=== PATIENT | female | born 1960 | race Caucasian/White ===

== ENCOUNTER 2023-04-08 10:35 | Emergency (ER) | payer SELFPAY ==
[2023-04-08 10:51] VITALS: BP 135/80; PULSE 98; RESP 16; TEMP 36.6; O2SAT 95; BMI 28.3
--- NOTE | 2023-04-08 11:36 | ED.GENADULT ---
HPI - General Adult General Date Seen: 04/08/23 Chief complaint: Jaw Injury/Pain Stated complaint: swollen/painful jaw Time Seen by Provider: 04/08/23 11:15 History of Present Illness HPI narrative: This is a very pleasant 62-year-old female who presents to the ER today for pain involving the 1 of the teeth involving her right mandible and pain with swelling involving her right lower lip and jaw. She knows that she has ?bad teeth?. She thinks that 1 of her bad teeth hip, most likely her will right mandibular canine which has been broken/affected by caries for a long time his creatinine infection. She has noted progressively worsening pain in her right lower jaw for about a week. She has also noted slowly increasing swelling of her right lower lip and this tissue of her right cheek. She has not had any fever or chills. No pain on the left side. No sore throat. No trouble swallowing or breathing. It has been bothersome and keeping her awake for the past couple of nights. She has not had any fevers. She is not diabetic, cancer patient, or otherwise immunosuppressed. She does not really take any regular medications. She is not truly allergic to anything but does have in sensitivities to mum any strong pain killer. She says they make her nauseous and queasy. She also would be reluctant to take any of those because she her grandmother overdosed on pain killers and . She just wants to avoid them. She does not have a dentist. She has not been in to see anyone about her tooth or infection. Related Data Previous Rx's Medication Instructions Recorded clindamycin HCl 300 mg capsule 300 mg PO TID #30 caps 04/08/23 Allergies Allergy/AdvReac Type Severity Reaction Status Date / Time meperidine [From Demerol] Allergy Unknown Verified 04/08/23 10:59 [facility] Social History Smoking Status: Current every day smoker How often do you have a drink containing alcohol: never AUDIT-C Alcohol total score: 0 Non-prescribed substance use: denies use Exam Narrative: Exam Narrative: Constitutional: Appears well-developed and well-nourished. Alert. Conversant. Non toxic. She has visible swelling of her right anterior lower lip and her right cheek. No definite submandibular swelling. Phonation is normal. Airways patent. No trismus. HENT: Head: Atraumatic. Nose: Nose normal. Mouth/Throat: Oral mucosa is clear and moist. She appears to be status post and extraction of her mandibular molars on both sides. I think she has her wisdom teeth bilaterally. She has multiple dental caries affecting her premolars. She also has dental caries/dental fracture affecting her right mandibular canine which is broken off almost down to the gum. There appears to be subtle erythema of the gingival tissue on the right side but no palpable or visible gingival abscess. She has erythema and subtle induration of the soft tissue of her cheek and anterior chin and right lower lip. However with careful palpation, no palpable abscess. No submandibular swelling. Tongue is normal. It protrudes normally. no trismus. Pharynx normal. Tonsils symmetric. No tonsillar enlargement, erythema, or exudate. Eyes: Conjunctivae normal. EOM normal. Pupils equal, round, and reactive to light. No scleral icterus. Neck: Normal range of motion. Neck supple. No tracheal deviation present. No cervical adenopathy. No neck swelling. Cardiovascular: Normal rate, regular rhythm. No gallop. No friction rub. No murmur heard. No JVD Pulmonary/Chest: Effort normal. No stridor. No respiratory distress. No wheezes. No rales. No rhonchi Musculoskeletal: RUE: Normal range of motion. No tenderness. No deformity LUE: Normal range of motion. No tenderness. No deformity RLE: Normal range of motion. No edema. No tenderness. No deformity LLE: Normal range of motion. No edema. No tenderness. No deformity Lymph: No cervical adenopathy. Neurological: Alert and oriented to person, place, and time. Normal strength. CN II-VII intact. No sensory deficit. GCS eye subscore is 4. GCS verbal subscore is 5. GCS motor subscore is 6. Normal coordination Skin: Skin is warm and dry. No rash noted. No pallor. Normal capillary refill. Psychiatric: Normal mood. Normal affect. Const: Vital Signs, click to edit/add: Vital Signs - 24 hr 04/08/23 10:51 Temperature 97.9 F Pulse Rate [Pulse Oximeter] 98 Respiratory Rate 16 Blood Pressure [Ri ght Upper Arm] 135/80 Pulse Oximetry 95 Oxygen Delivery Me thod Room Air Course Course ED Course: Recheck-doing well after receiving clinda and Motrin. No signs of allergic reaction. She is comfortable discharging to home with a course of oral antibiotics. She is provided with dental resources. Questions answered. Vital Signs Vital signs: Initial Vital Signs Temperature 97.9 F 04/08/23 10:51 Temperature Source Temporal Artery Scan 04/08/23 10:51 Pulse Rate 98 04/08/23 10:51 Respiratory Rate 16 04/08/23 10:51 Blood Pressure 135/80 04/08/23 10:51 Blood Pressure Mean 98 04/08/23 10:51 Blood Pressure Position Sitting 04/08/23 10:51 Pulse Oximetry 95 04/08/23 10:51 Oxygen Delivery Method Room Air 04/08/23 10:51 Vital Signs Temperature 97.9 F 04/08/23 10:51 Pulse Rate 98 04/08/23 10:51 Respiratory Rate 16 04/08/23 10:51 Blood Pressure 135/80 04/08/23 10:51 Pulse Oximetry 95 04/08/23 10:51 Oxygen Delivery Method Room Air 04/08/23 10:51 Temperature 97.9 F 04/08/23 10:51 Pulse Rate 98 04/08/23 10:51 Respiratory Rate 16 04/08/23 10:51 Blood Pressure 135/80 04/08/23 10:51 Pulse Oximetry 95 04/08/23 10:51 Oxygen Delivery Method Room Air 04/08/23 10:51 Medical Decision Making MDM Narrative Medical decision making narrative: This patient presents with a tooth ache and pain involving her right mandible and right cheek/right side of her lower lip. The differential diagnosis includes: cracked tooth syndrome, pulpitis, sub-apical abscess, amongst others. She has clear evidence for off facial cellulitis/infection involving her right cheek and right lower lip. There is no abscess detected around the tooth amenable to incision and drainage. I am highly suspicious that this is probably an odontogenic infection. No evidence for any gingival abscess that would be amenable to drainage here in the ER. She does have facial cellulitis but no evidence of buccinator/canine space infections, significant facial swelling, or Adam's angina. Her infection is unilateral and clearly not affecting her submandibular tissues, affect her airway or tongue. There are no posterior pharyngeal space infections detected. Given the amount of erythema and swelling in her cheek we did discuss possible CT scan to look for abscess but on my exam there really is no evidence. We feel that it is reasonable to start her on broad-spectrum antibiotics (1st dose of clindamycin given here in the ER this morning) and monitor for the next 24-48 hours before proceeding with advanced imaging. . Treatment with NSAID, antibiotics. She will need close Follow up with a dentist or oral surgeon in the coming days is indicated for further work up and treatment. She does not have a pre-existing relationship with the dentist. She is given dental resources through the ER. Instructions for return to the ER were reviewed with the patient. Discharge Plan Discharge Clinical Impression: Cellulitis of face, Dental infection Patient Disposition: Home, Self-Care Condition: Stable Instructions: Dental Abscess (ED), Cellulitis (ED) Additional Instructions: As we discussed, please try to follow-up with a dentist by Tuesday. If you have worsening infection, especially increasing swelling in your cheek, swelling underneath her chin that affects your tongue or any difficulty opening her mouth, or high fever, please contact her dentist immediately or come back to the ER right away to be rechecked. Use the antibiotics 3 times daily. Be careful because they can cause diarrhea. Start on probiotics or yogurt with active cultures of healthy bacteria. Use Tylenol or ibuprofen for pain. Remember if you have problems, he can come back to the ER any time. Prescriptions: New clindamycin HCl 300 mg capsule 300 mg PO TID Qty: 30 0RF Follow Up/Referrals: Provider,Not a Local [Primary Care Provider] - Stand Alone Forms: [employer] Info Instructions
[2023-04-08] MEDS: IBUPROFEN 200 MG TABLET 600 MG PO (11:45)
[2023-04-08] MEDS: CLINDAMYCIN 150 MG CAPSULE 300 MG PO (11:45)
--- NOTE | 2023-04-08 11:45 | ED.NURSE ---
Provided patient with a list of emergency dentistries and contact information.
== END 2023-04-08 12:09 | disposition home or self-care (01) ==
LOC: ED 11:55
PROVIDERS: Emergency Provider Emergency Medicine
DX: K04.7 Periapical abscess without sinus (principal); L03.211 Cellulitis of face
CPT/HCPCS: 99283; A9270